=== PATIENT | female | born 1940 | race Native Hawaiian/Other Pacific Islander ===

== ENCOUNTER 2021-07-11 01:33 | Emergency (ER) | payer OTHER ==
[~2021-07-11] VITALS: Ht 162.6 cm; Wt 85.3 kg
[2021-07-11 01:33] VITALS: BP 164/47; TEMP 98.7
[~2021-07-11 01:33] MED LIST: ACET-206 PO; AMLODIPINE BESYLATE PO; ASPIR-8181 MG PO; ATOR20TA2 PO; B-121000 MC4 PO; BUSP5TAB2 PO; BUSPIRONE10 MG PO; CARV3.12 PO; CHOL100034 PO; CLOP75TA2 PO; CLOPIDOGREL75 MG PO; COZAAR100 MG PO; DONE5TAB PO; ENTERIC COATED325 MG PO; ESCI10TA PO; FLUOXETINE20 MG PO; LEVO0.1T6 PO; LIOTHYRONINE5 MCG PO; LIPITOR20 MG PO; MIRTAZAPINE7.5 MG PO; OLANZAPINE5 MG PO; QUETIAPINE50 MG PO
[2021-07-11 02:37] LABS: POTASSIUM 3.5 mmol/L (3.6-5.2)
[2021-07-11 03:04] LABS: PLATELET COUNT 235 K/uL (152-353)
[2021-07-11] MEDS ORDERED: LIPITOR20 MG PO (11:40)
[2021-07-11] MEDS ORDERED: BUSPIRONE HCL10 MG PO (11:42)
[2021-07-11] MEDS ORDERED: DONEPEZIL HYDRO10 M1 PO (11:43)
[2021-07-11] MEDS ORDERED: ESCITALOPRAM10 MG PO (11:45)
[2021-07-11] MEDS ORDERED: MIRTAZAPINE7.5 MG PO (11:46)
[2021-07-11] MEDS ORDERED: OLANZAPINE10 M2 PO (11:47)
[2021-07-11] MEDS ORDERED: OLANZAPINE5 MG PO (11:48)
[2021-07-11] MEDS ORDERED: MULT VITAMI1 PO (11:51)
[2021-07-11] MEDS ORDERED: VITAMIN D1000 UNI1 PO (11:52)
== END 2021-07-11 03:45 | disposition still patient (30) ==
LOC: ED 01:33
PROVIDERS: Emergency Medicine Emergency Medical Services
DX: F03.91 Unspecified dementia, unspecified severity, with behavioral disturbance (principal); Z11.52 Encounter for screening for COVID-19; Z04.6 Encounter for general psychiatric examination, requested by authority
CPT/HCPCS: 36415; 80053; 81000; 85027; 87635; 99283; U0003